=== PATIENT | male | born 1985 ===

== ENCOUNTER → 2021-11-01 16:23 | Emergency (ER) | payer SELFPAY ==
[~2021-11-01] VITALS: Ht 165.1 cm; Wt 65.8 kg
== END | disposition home or self-care (01) ==
LOC: ER 16:23
DX: S09.90XA Unspecified injury of head, initial encounter (principal); F10.129 Alcohol abuse with intoxication, unspecified; F17.210 Nicotine dependence, cigarettes, uncomplicated; Z88.2 Allergy status to sulfonamides; V43.52XA Car driver injured in collision with other type car in traffic accident, initial encounter; Y93.89 Activity, other specified; Y92.410 Unspecified street and highway as the place of occurrence of the external cause; Y99.8 Other external cause status
CPT/HCPCS: 70450